=== PATIENT | female | born 1930 | race Caucasian/White ===

== ENCOUNTER 2017-01-14 17:22 | Emergency (ER) | payer MEDICARE ==
[~2017-01-14] VITALS: Ht 149.9 cm; Wt 72.6 kg
[2017-01-14] MEDS ORDERED: LIDOCAINE (700MG/PATCH) PATCH. TP ONE (18:00)
[2017-01-14] MEDS ORDERED: fentaNYL PF VIAL 100 MCG/2 ML VIAL IV ONE ×2 (18:00→19:30)
--- NOTE | 2017-01-14 18:05 | PHYS DOC ---
Past Medical History Past Medical History: Cancer, CHF, CVA, Hypertension, Other Additional Past Medical Histor: FAMILIAL POLYPOSIS Past Surgical History: Cholecystectomy, Colectomy, Other Additional Past Surgical Histo: ILEOSTOMY, LT BREAST LUMPECTOMY Alcohol Use: None Drug Use: None Adult General Chief Complaint Chief Complaint: back/hip pain HPI HPI Patient is a 86 year old who presents with left low back pain and hip pain. She states she's had this problem before and it reoccurred today when she was getting out of bed she stood up and twisted and got the pain. The pain originates in her left SI joint and radiates into her thigh stopping prior to the knee. It does worsen with movement or bending. She denies any saddle sensory change, no bowel or bladder incontinence. Patient takes tramadol chronically for her pain and this did not resolve her pain today. She does live alone Review of Systems Review of Systems Constitutional: Denies fever or chills [] Eyes: Denies change in visual acuity, redness, or eye pain [] HENT: Denies nasal congestion or sore throat [] Respiratory: Denies cough or shortness of breath [] Cardiovascular: Denies chest pain GI: Denies abdominal pain, nausea, vomiting, bloody stools or diarrhea [] : Denies dysuria or hematuria [] Musculoskeletal: per history of present illness Integument: Denies rash or skin lesions [] Neurologic: Denies headache, focal weakness or sensory changes [] Endocrine: Denies polyuria or polydipsia [] Current Medications Current Medications Current Medications Medications (Trade) Dose Ordered Sig/Agueda Start Time Stop Time Status Last Admin Dose Admin Fentanyl Citrate (Fentanyl 2ml Vial) 25 mcg 1X ONCE 01/14/17 19:30 01/14/17 19:31 DC 01/14/17 19:31 25 MCG Lidocaine (Lidoderm) 1 patch 1X ONCE 01/14/17 18:00 01/14/17 18:01 DC 01/14/17 18:05 1 PATCH Allergies Allergies Allergies Coded Allergies Type Severity Reaction Last Updated Verified Penicillins Allergy Intermediate Swelling 03/03/15 Yes codeine Adverse Reaction Intermediate Anxiety 03/03/15 Yes diphenhydramine Adverse Reaction Intermediate Diarrhea 03/03/15 Yes Physical Exam Physical Exam Constitutional: Well developed, well nourished, no acute distress, non-toxic appearance. [] HENT: Normocephalic, atraumatic, bilateral external ears normal, oropharynx moist, no oral exudates, nose normal. [] Eyes: PERRLA, EOMI, conjunctiva normal, no discharge. [] Neck: Normal range of motion, no tenderness, supple, no stridor. [] Cardiovascular:Heart rate regular with regular rhythm Lungs & Thorax: Bilateral breath sounds clear to auscultation [] Abdomen: Bowel sounds normal, soft, no tenderness, no masses, no pulsatile masses. [] Skin: Warm, dry, no erythema, no rash. [] Back: Tender to palpation in the left SI joint, negative straight leg test, no appreciable edema, no increased warmth Extremities: No tenderness, no cyanosis, no clubbing, ROM intact, no edema. [] Neurologic: Alert and oriented X 3, normal motor function, normal sensory function, no focal deficits noted. [] Psychologic: Affect normal, judgement normal, mood normal. [] Current Patient Data Vital Signs Vital Signs Date Time Temp Pulse Resp B/P (MAP) Pulse Ox O2 Delivery O2 Flow Rate FiO2 01/14/17 19:31 18 97 Room Air 01/14/17 17:35 97.9 105 196/97 (130) 97.9 Lab Values Laboratory Tests Test 01/14/17 18:00 Urine Color Yellow Urine Clarity Clear Urine pH 5.5 Urine Specific Hayden 1.015 Urine Protein Negative mg/dL (NEG-TRACE) Urine Glucose (UA) Negative mg/dL (NEG) Urine Ketones (Stick) Negative mg/dL (NEG) Urine Blood Negative (NEG) Urine Nitrite Negative (NEG) Urine Bilirubin Negative (NEG) Urine Urobilinogen Dipstick 0.2 mg/dL (0.2 mg/dL) Urine Leukocyte Esterase Negative (NEG) Urine RBC 0 /HPF (0-2) Urine WBC Occ /HPF (0-4) Urine Squamous Epithelial Cells Occ /LPF Urine Amorphous Sediment Present /HPF Urine Bacteria 0 /HPF (0-FEW) Urine Mucus Mod /LPF EKG EKG [] Radiology/Procedures Radiology/Procedures left hip, A/P pelvis 3 views: No acute fracture, dislocation or foreign body, interpreted by me.[] Course & Med Decision Making Course & Med Decision Making Pertinent Labs and Imaging studies reviewed. (See chart for details) She was given 25 g of IV fentanyl, lidocaine patch. Patient was feeling better , I did not appreciate any abnormalities on her plain film x-rays. I talked with patient regarding going home and she feels comfortable with this plan. She received an additional 25 g of fentanyl prior to removal of the IV. Patient has no contraindications for ibuprofen, discharged with 400 mg ibuprofen tablets along with additional lidocaine patches. Patient is to follow-up with primary care physician and return percussions given. Dragon Disclaimer Dragon Disclaimer This electronic medical record was generated, in whole or in part, using a voice recognition dictation system. Departure Departure Impression: Primary Impression: Sciatica Disposition: HOME, SELF-CARE Condition: STABLE Referrals: FLAVIA BHANDARI MD (PCP) Scripts [lidocaine 5% patch] No Conflict Check 1 PATCH TOP PRN Q12HR Y for PAIN, #5 apply to area of pain, remain in place for 12 hours, then remove for 12 hours. Prov: RYAN POWERS MD 01/14/17 Ibuprofen (Ibuprofen) 400 Mg Tablet 400 MG PO PRN Q6-8HRS Y for PAIN, #24 TAB take with food or milk Prov: RYAN POWERS MD 01/14/17 RYAN POWERS MD Jan 14, 2017 18:05
[2017-01-14 18:27] LABS: BILIRUBIN,URINE NEGATIVE (NEG); GLUCOSE,URINE NEGATIVE (NEG); NITRITE,URINE NEGATIVE (NEG); PH,URINE 5.5; PROTEIN,URINE NEGATIVE (NEG-TRACE); UROBILINOGEN,URINE 0.2 mg/dL (0.2 mg/dL)
[2017-01-14 18:44] LABS: BACTERIA,URINE 0 /HPF (0-FEW); RBC,URINE 0 /HPF (0-2); SQUAMOUS EPITHELIAL CELL,UR OCC /LPF; WBC,URINE OCC /HPF (0-4)
[2017-01-14] MEDS ORDERED: lidocaine 5% patch TOP (19:23)
[2017-01-14] MEDS ORDERED: IBUP400T18 PO (19:23)
[2017-01-14 19:43] VITALS: BP 170/57
--- NOTE | 2017-01-15 08:59 | RAD ---
EXAM: Frontal pelvis with 2V left hip. HISTORY: Left hip pain. COMPARISON: None. FINDINGS: No fractures are identified. Osteopenia is at least moderate. The joint spaces of both hips are maintained. Femoral head/neck offset is mildly decreased anteriorly on the left. There is some chondrocalcinosis of the acetabular labrums. Atherosclerotic calcifications are noted. There are moderate degenerative changes of the lower lumbar spine. IMPRESSION: 1. No fracture or clear degenerative change at the hips for patient age.
== END 2017-01-14 20:34 | disposition home or self-care (01) ==
LOC: ER 17:22
DX: M54.42 Lumbago with sciatica, left side (principal); M25.552 Pain in left hip; I11.0 Hypertensive heart disease with heart failure; I50.9 Heart failure, unspecified; Z86.73 Personal history of transient ischemic attack (TIA), and cerebral infarction without residual deficits; Z90.49 Acquired absence of other specified parts of digestive tract; Z88.0 Allergy status to penicillin; Z88.5 Allergy status to narcotic agent; Z88.8 Allergy status to other drugs, medicaments and biological substances; X50.1XXA Overexertion from prolonged static or awkward postures, initial encounter; Y93.89 Activity, other specified; Y99.8 Other external cause status; Y92.89 Other specified places as the place of occurrence of the external cause
CPT/HCPCS: 73502; 81001; 96374; 96376; 99285; J3010

== ENCOUNTER 2020-02-16 15:56 | Emergency (ER) | payer MEDICARE ==
[~2020-02-16] VITALS: Ht 147.3 cm; Wt 63.0 kg
[~2020-02-16 15:56] MED LIST: IBUP400T18 PO; lidocaine 5% patch TOP
[2020-02-16 16:20] VITALS: BP 181/73
--- NOTE | 2020-02-16 17:13 | ED.ADGEN ---
Past Medical History Past Medical History: Arthritis, Cancer, CHF, CVA, High Cholesterol, Hype rtension, Other Additional Past Medical Histor: FAMILIAL POLYPOSIS Past Surgical History: Cholecystectomy, Colectomy, Other Additional Past Surgical Histo: ILEOSTOMY, LT BREAST LUMPECTOMY Smoking Status: Never Smoker Alcohol Use: None Drug Use: None General Adult EDM: Chief Complaint: UPPER EXTREMITY PAIN HPI: HPI: Patient is a 89 year old female who presents emergency department complaints of right elbow pain with movement for the last 4 weeks. She states that she has been seen by her primary care doctor 3 times and he refuses to do x-ray. She de nies any recent injury or fall. Patient denies any bruising, redness, swelling, or warmth of the affected extremity. She states she has had a little cough, some mild sore throat, and some body aches and Saturday but she is not here to be seen for that. Patient states she just wants an x-ray of her elbow and wants to go back home. She currently rates the pain 8 out of 10 on the pain scale, she denies any alleviating factors, the pain is worse with movement. She denies any fever, nausea, vomiting, diarrhea, abdominal pain, shortness of breath, or headache. Review of Systems: Review of Systems: Complete ROS is negative unless otherwise noted in HPI. Allergies: Allergies: Allergies Coded Allergies Type Severity Reaction Last Updated Verified Penicillins Allergy Intermediate Swelling 03/03/15 Yes codeine Adverse Reaction Intermediate Anxiety 03/03/15 Yes diphenhydramine Adverse Reaction Intermediate Diarrhea 03/03/15 Yes Physical Exam: PE: See Above Constitutional: Well developed, well nourished, no acute distress, non-toxic appearance, irritable [] HENT: Normocephalic, atraumatic, bilateral external ears normal, nose normal. [] Eyes: PERRLA, EOMI, conjunctiva normal, no discharge. [] Neck: Normal range of motion, no stridor. [] Cardiovascular:Heart rate regular rhythm Lungs & Thorax: Respirations even and unlabored, no retractions, no respiratory distress, speaking full sentences Skin: Warm, dry, no erythema, no rash. [] Extremities: Right elbow: Lateral tenderness to palpation without obvious deformity or crepitus, no erythema, no warmth, no cyanosis, ROM intact, no edema. [] Neurologic: Alert and oriented X 3, no focal deficits noted. [] Psychologic: Affect normal, judgement normal, mood irritable] Current Patient Data: Vital Signs: Vital Signs Date Time Temp Pulse Resp B/P (MAP) Pulse Ox O2 Delivery O2 Flow Rate FiO2 02/16/20 16:20 98.4 83 20 181/73 (109) 96 Room Air 98.4 EKG: EKG: [] Heart Score: Risk Factors: Risk Factors: DM, Current or recent (<one month) smoker, HTN, HLP, family history of CAD, obesity. Risk Scores: Score 0 - 3: 2.5% MACE over next 6 weeks - Discharge Home Score 4 - 6: 20.3% MACE over next 6 weeks - Admit for Clinical Observation Score 7 - 10: 72.7% MACE over next 6 weeks - Early Invasive Strategies Radiology/Procedures: Radiology/Procedures: PROCEDURE: ELBOW RIGHT 3V Study: XR ELBOW COMPLETE_RIGHT 3+ VIEWS Indication: Persistent right elbow pain. No known injury. Comparison: None. Findings: No acute fracture. No traumatic malalignment. Mild trochlear and radiocapitellar arthrosis. Mild degenerative spurring at the ulnar margin of the radial head. Chronic osseous proliferation at the lateral humeral epicondyles. No large elbow joint effusion. Mild soft tissue prominence at the dorsum of the elbow joint. Impression: 1. No acute osseous abnormality. 2. Mild soft tissue prominence at the dorsum of the elbow joint. Correlate for any symptoms that would suggest triceps tendinopathy or olecranon bursitis. 3. Relatively mild elbow joint arthrosis. Degenerative bony proliferation at the lateral humeral condyle at the expected location of the common extensor origin.[] Course & Med Decision Making: Course & Med Decision Making Pertinent Labs and Imaging studies reviewed. (See chart for details) [] Dragon Disclaimer: Dragon Disclaimer: This electronic medical record was generated, in whole or in part, using a voice recognition dictation system. Departure Departure Impression: Primary Impression: Right elbow pain Disposition: 01 DC HOME SELF CARE/HOMELESS Condition: STABLE Referrals: FLAVIA BHANDARI MD (PCP) MARTIN PRESTON MD Patient Instructions: Arthritis, Nonspecific, [id number] Additional Instructions: Continue taking Tylenol as needed for pain. Apply heat or ice to sore area as needed for comfort. Follow up with Dr. Preston if symptoms persist. Return to the ER if symptoms worsen. LEISA [employer]IR HAND BULLDOZER Feb 16, 2020 17:13
--- NOTE | 2020-02-16 17:32 | RAD ---
Study: XR ELBOW COMPLETE_RIGHT 3+ VIEWS Indication: Persistent right elbow pain. No known injury. Comparison: None. Findings: No acute fracture. No traumatic malalignment. Mild trochlear and radiocapitellar arthrosis. Mild dege nerative spurring at the ulnar margin of the radial head. Chronic osseous proliferation at the latera l humeral epicondyles. No large elbow joint effusion. Mild soft tissue prominence at the dorsum of th e elbow joint. Impression: 1. No acute osseous abnormality. 2. Mild soft tissue prominence at the dorsum of the elbow joint. Correlate for any symptoms that woul d suggest triceps tendinopathy or olecranon bursitis. 3. Relatively mild elbow joint arthrosis. Degenerative bony proliferation at the lateral humeral cond yle at the expected location of the common extensor origin. Electronically signed by: SHERWIN NEUMANN MD (02/16/2020 5:30 PM) [facility]
== END 2020-02-16 18:32 | disposition home or self-care (01) ==
LOC: ER 15:56
DX: M25.521 Pain in right elbow (principal); J02.9 Acute pharyngitis, unspecified; R05 Cough; M79.10 Myalgia, unspecified site; I11.0 Hypertensive heart disease with heart failure; I50.9 Heart failure, unspecified; E78.00 Pure hypercholesterolemia, unspecified; Z86.73 Personal history of transient ischemic attack (TIA), and cerebral infarction without residual deficits; Z88.0 Allergy status to penicillin; Z88.5 Allergy status to narcotic agent
CPT/HCPCS: 73080; 99283

== ENCOUNTER → 2020-05-10 | Outpatient (CLI) | payer MEDICARE | LOC: SPEC 09:49 | PROVIDERS: ATTEND Podiatrist | DX: I70.245 Atherosclerosis of native arteries of left leg with ulceration of other part of foot (principal) | CPT/HCPCS: 87071; 87075 ==